=== PATIENT | male | born 1950 | race Caucasian/White ===

== ENCOUNTER 2019-03-26 16:02 | Observation (INO) | payer MEDICARE ==
[~2019-03-26] VITALS: Ht 182.9 cm; Wt 102.8 kg
[2019-03-26 16:59] LABS: EOS # 0.4 (0.04-0.40); EOS % 3.7 % (0.0-4.0); HEMATOCRIT 49.8 % (42.0-52.0); HEMOGLOBIN 17.1 g/dL (13.5-18.0); LYMPH# 3.9 (1.50-4.00); MEAN CELL VOLUME 95 fl (78-100); MEAN CORPUSCULAR HEMOGLOBIN 33 pg (27-31); MEAN CORPUSCULAR HGB CONC 34 g/dL (33-37); MEAN PLATELET VOLUME 9.1 fl (7.4-10.4); MONO # 0.7 (0.20-0.80); NEU # 6.1 (1.40-6.50); PLATELET COUNT 318 K/mm3 (130-400); RED BLOOD COUNT 5.24 M/mm3 (4.20-5.60); RED CELL DISTRIBUTION WIDTH 14.4 % (11.5-14.5); WHITE BLOOD COUNT 11.2 K/mm3 (4.8-10.8)
[2019-03-26] MEDS ORDERED: LISINOPRIL40 MG PO (17:01)
[2019-03-26] MEDS ORDERED: LEVOTHYROXIN0.088 MG PO (17:01)
[2019-03-26] MEDS ORDERED: ZYLOPRIM 100MG100 MG PO (17:02)
[2019-03-26] MEDS ORDERED: FLUTICASON0.05 MG/AC NS (17:02)
[2019-03-26] MEDS ORDERED: ST. JOSEPH ASPI81 MG PO (17:03)
[2019-03-26] MEDS ORDERED: SIMVASTATIN40 M1 PO (17:03)
[2019-03-26] MEDS ORDERED: FISH OIL1000 MG PO (17:04)
[2019-03-26 17:17] LABS: ALBUMIN 4.4 g/dL (3.4-4.8); POTASSIUM 4.3 mmol/L (3.5-5.1); SODIUM 137 mmol/L (136-145)
[2019-03-26 17:18] LABS: CALCIUM 10.9 mg/dL (8.3-10.5)
[2019-03-26 17:19] LABS: GLUCOSE 157 mg/dL (75-110)
[2019-03-26 17:20] LABS: CARBON DIOXIDE 21 mmol/L (23-31)
[2019-03-26 17:21] LABS: TOTAL BILIRUBIN 0.4 mg/dL (0.2-1.2)
[2019-03-26 17:23] LABS: ALCOHOL IN-HOUSE < 10 mg/dL (<10)
[2019-03-26 17:24] LABS: AST-SGOT 34 U/L (5-34)
[2019-03-26 17:26] LABS: ALT/SGPT 35 U/L (0-55)
[2019-03-26 17:32] LABS: CKMB ISOENZYME 1.3 ng/mL (0.0-3.5)
[2019-03-26 17:44] LABS: TROPONIN-I < 0.03 ng/mL (<0.030)
[2019-03-26 19:18] VITALS: BP 154/94
[2019-03-26 19:23] LABS: URINE APPEARANCE HAZY; URINE BILIRUBIN NEGATIVE (NEGATIVE); URINE BLOOD NEGATIVE (NEGATIVE); URINE COLOR YELLOW; URINE GLUCOSE NEGATIVE (NEGATIVE); URINE KETONE NEGATIVE (NEGATIVE); URINE LEUKOCYTE ESTERASE NEGATIVE (NEGATIVE); URINE NITRATE NEGATIVE (NEGATIVE); URINE PROTEIN(semi-quant) TRACE mg/dL (NEGATIVE); URINE UROBILINOGEN NORMAL (NORMAL)
[2019-03-26 20:09] VITALS: BP 141/90
[2019-03-26 23:00] VITALS: BP 122/76
[2019-03-27 03:22] VITALS: BP 120/75
[2019-03-27 06:06] LABS: EOS # 0.6 (0.04-0.40); HEMATOCRIT 44.6 % (42.0-52.0); HEMOGLOBIN 15.5 g/dL (13.5-18.0); LYMPH# 2.7 (1.50-4.00); MEAN CELL VOLUME 96 fl (78-100); MEAN CORPUSCULAR HEMOGLOBIN 33 pg (27-31); MEAN CORPUSCULAR HGB CONC 35 g/dL (33-37); MEAN PLATELET VOLUME 8.9 fl (7.4-10.4); MONO # 0.7 (0.20-0.80); NEU # 4.4 (1.40-6.50); PLATELET COUNT 244 K/mm3 (130-400); RED BLOOD COUNT 4.67 M/mm3 (4.20-5.60); RED CELL DISTRIBUTION WIDTH 14.4 % (11.5-14.5); WHITE BLOOD COUNT 8.3 K/mm3 (4.8-10.8)
[2019-03-27 06:15] LABS: EOS % 6.6 % (0.0-4.0)
[2019-03-27 06:19] VITALS: BP 116/74
[2019-03-27 06:35] LABS: POTASSIUM 4.3 mmol/L (3.5-5.1); SODIUM 138 mmol/L (136-145)
[2019-03-27 06:36] LABS: CALCIUM 9.2 mg/dL (8.3-10.5); GLUCOSE 110 mg/dL (75-110)
[2019-03-27 06:38] LABS: CARBON DIOXIDE 20 mmol/L (23-31)
[2019-03-27 06:49] LABS: CKMB ISOENZYME 1.2 ng/mL (0.0-3.5)
[2019-03-27 06:56] LABS: TROPONIN-I < 0.03 ng/mL (<0.030)
[2019-03-27] MEDS ORDERED: LEVOTHYROXIN0.088 MG PO ×2 (08:14)
[2019-03-27] MEDS ORDERED: SYNTHROID RP0.1 MG PO (08:16)
[2019-03-27 08:41] VITALS: BP 120/74
[2019-03-27 09:45] VITALS: BP 127/75
== END 2019-03-27 10:15 | disposition home or self-care (01) ==
LOC: ED 16:02 → MED/SURG 18:57
PROVIDERS: ADMIT Nurse Practitioner Family
DX: R55 Syncope and collapse (principal); E86.0 Dehydration; I95.1 Orthostatic hypotension; N17.9 Acute kidney failure, unspecified; X30.XXXA Exposure to excessive natural heat, initial encounter; E03.9 Hypothyroidism, unspecified; I10 Essential (primary) hypertension; E78.5 Hyperlipidemia, unspecified; Z79.899 Other long term (current) drug therapy; Z79.82 Long term (current) use of aspirin; Z87.891 Personal history of nicotine dependence
CPT/HCPCS: G0378; J2405; J7030

== ENCOUNTER 2021-05-19 09:08 | Outpatient (RCR) | payer MEDICARE ==
[~2021-05-19 09:08] MED LIST: FISH OIL1000 MG PO; FLUTICASON0.05 MG/AC NS; LEVOTHYROXIN0.088 MG PO; LISINOPRIL40 MG PO; SIMVASTATIN40 M1 PO; ST. JOSEPH ASPI81 MG PO; SYNTHROID RP0.1 MG PO; ZYLOPRIM 100MG100 MG PO
== END 2021-07-16 | disposition home or self-care (01) ==
LOC: PT 09:08
DX: M25.511 Pain in right shoulder (principal)

== ENCOUNTER 2021-07-21 09:00 | Outpatient (RCR) | payer MEDICARE | END 2021-08-16 | disposition home or self-care (01) | LOC: PT | DX: M25.511 Pain in right shoulder (principal) ==

== ENCOUNTER 2021-08-18 09:00 | Outpatient (RCR) | payer MEDICARE | END 2021-09-01 17:00 | disposition home or self-care (01) | LOC: PT 09:00 | DX: M25.511 Pain in right shoulder (principal) ==